=== PATIENT | male | born 1995 | race Hispanic/Latino ===

== ENCOUNTER 2019-02-19 15:57 | Emergency (ER) | payer SELFPAY ==
[2019-02-19] MEDS ORDERED: LIDOCAINE 1% MPF 5 ML VIAL ONE (16:30)
--- NOTE | 2019-02-19 17:05 | EDPHYS ---
Physician Documentation [facility] Name: Froylan Becerril Age: 23 yrs Sex: Male : 1995 Arrival Date: 02/19/2019 Time: 15:58 Bed 16 Private MD: ED Physician eJsse Escoto HPI: 02/19 16:14 This 23 yrs old Male presents to ER via Ambulatory with complaints of pm1 Laceration - eyebrow. 16:14 The patient or guardian reports a laceration, 2 cm(s), clean. The complaints affect the pm1 outer aspect of right eyebrow. Context of injury: The problem was sustained at a sports field or court, resulted from elbowed to right eyebrow while playing soccer. Onset: The symptoms/episode began/occurred just prior to arrival. Associated signs and symptoms: Loss of consciousness: This patient did not experience any loss of consciousness. Pertinent negatives: headache, neck pain, seizure. The patient has not experienced similar symptoms in the past. It is unknown whether or not the patient has recently seen a physician. Historical: - Allergies: 16:01 No Known Allergies; jl7 - Home Meds: 16:01 None [Active]; jl7 - PMHx: 16:01 None; jl7 - PSHx: 16:01 None; jl7 - Immunization history:: Adult Immunizations not up to date. - Social history:: Smoking status: Patient/guardian denies using tobacco. - Ebola Screening: : No symptoms or risks identified at this time. ROS: 16:14 Constitutional: Negative for fever, chills, and weight loss. pm1 16:14 Eyes: Negative for injury, pain, redness, and discharge, ENT: Negative for injury, pain, and discharge, Neck: Negative for injury, pain, and swelling, Cardiovascular: Negative for chest pain, palpitations, and edema, Respiratory: Negative for shortness of breath, cough, wheezing, and pleuritic chest pain, Back: Negative for injury and pain, MS/Extremity: Negative for injury and deformity. 16:14 Neuro: Negative for headache, weakness, numbness, tingling, and seizure. 16:14 Skin: Positive for laceration(s), of the outer aspect of right eyebrow. Exam: 16:14 Constitutional: This is a well developed, well nourished patient who is awake, alert, pm1 and in no acute distress. 16:14 Eyes: Pupils equal round and reactive to light, extra-ocular motions intact. Lids and lashes normal. Conjunctiva and sclera are non-icteric and not injected. Cornea within normal limits 16:14 Neck: Trachea midline, no thyromegaly or masses palpated, and no cervical lymphadenopathy. Supple, full range of motion without nuchal rigidity, or vertebral point tenderness. No Meningismus. Chest/axilla: Normal chest wall appearance and motion. Nontender with no deformity. No lesions are appreciated. Cardiovascular: Regular rate and rhythm with a normal S1 and S2. No gallops, murmurs, or rubs. Normal PMI, no JVD. No pulse deficits. Respiratory: Lungs have equal breath sounds bilaterally, clear to auscultation and percussion. No rales, rhonchi or wheezes noted. No increased work of breathing, no retractions or nasal flaring. Skin: Warm, dry with normal turgor. Normal color with no rashes, no lesions, and no evidence of cellulitis. MS/ Extremity: Pulses equal, no cyanosis. Neurovascular intact. Full, normal range of motion. 16:14 Head/face: Noted is no obvious of injury or deformity except a laceration(s), that is linear, 2 cm(s), of the outer aspect of right eyebrow. 16:14 ENT: External ear(s): are unremarkable, Ear canal(s): are normal, TM's: are normal. 16:14 Neuro: Orientation: is normal, Motor: is normal, moves all fours, Gait: is steady, at a normal pace, without difficulty. Vital Signs: 16:01 BP 135 / 77; Pulse 92; Resp 16 S; Temp 98.2(O); Pulse Ox 97% on R/A; Weight 58.97 kg jl7 (R); Height 5 ft. 3 in. (160.02 cm) (R); Pain 3/10; 16:01 Body Mass Index 23.03 (58.97 kg, 160.02 cm) jl7 [place] Coma Score: 16:14 Eye Response: spontaneous(4). Verbal Response: oriented(5). Motor Response: obeys pm1 commands(6). Total: 15. Laceration: 17:02 Wound Repair of 2cm ( 0.8in ) subcutaneous laceration to outer aspect of right eyebrow. pm1 Linear shaped.. Distal neuro/vascular/tendon intact. Anesthesia: Local anesthetic administered with 1 mls of 1% lidocaine. Wound prep: Extensive cleansing with hibiclenz by me, Wound irrigation with saline by me, Wound explored extensively, Copious irrigation. Skin closed with 4 5-0 Prolene using simple sutures and sterile technique. Dressed with 4x4's. Patient tolerated well. MDM: 16:03 Patient medically screened. pm1 17:02 Data reviewed: vital signs. Counseling: I had a detailed discussion with the patient pm1 and/or guardian regarding: the historical points, exam findings, and any diagnostic results supporting the discharge/admit diagnosis, the need for outpatient follow up, to return to the emergency department if symptoms worsen or persist or if there are any questions or concerns that arise at home, suture removal in 4-5 days. 02/19 16:14 Order name: Prolene, Sutures; Complete Time: 16:31 pm1 02/19 16:14 Order name: Dressing - Wound; Complete Time: 17:07 pm1 02/19 16:14 Order name: Gloves, Sterile; Complete Time: 16:31 pm1 02/19 16:14 Order name: Setup Suture Tray; Complete Time: 16:31 pm1 Administered Medications: 16:40 Drug: Lidocaine (1 %) 5 ml {Note: by Oskar Frost NP.} Volume: 5 ml; Route: Infiltration;aj1 Disposition: 02/20 10:25 Co-signature as Attending Physician, Jesse Escoto MD I agree with the assessment and ricky plan of care. Disposition: 02/19/19 17:04 Discharged to Home. Impression: Laceration without foreign body of unspecified part of head - right eyebrow. - Condition is Stable. - Discharge Instructions: Facial Laceration. - Medication Reconciliation Form, Thank You Letter, Antibiotic Education, Prescription Opioid Use form. - Follow up: Emergency Department; When: As needed; Reason: Worsening of condition. Follow up: Private Physician; When: 4-5 days; Reason: Wound Recheck, Recheck today's complaints, Continuance of care, Staple/Suture removal, Re-evaluation by your physician. - Problem is new. - Symptoms have improved. Signatures: Juany Paulino, RN RN aj1 Jesse Escoto MD MD cha Marinas, Patrick, DRAGAN MOTOR GENERATOR SET OPERATOR pm1 Ashish Cuadra RN RN jl7 Corrections: (The following items were deleted from the chart) 02/19 17:15 17:04 02/19/2019 17:04 Discharged to Home. Impression: Laceration without foreign body aj1 of unspecified part of head - right eyebrow. Condition is Stable. Forms are Medication Reconciliation Form, Thank You Letter, Antibiotic Education, Prescription Opioid Use. Follow up: Emergency Department; When: As needed; Reason: Worsening of condition. Follow up: Private Physician; When: 4-5 days; Reason: Wound Recheck, Recheck today's complaints, Continuance of care, Staple/Suture removal, Re-evaluation by your physician. Problem is new. Symptoms have improved. pm1
--- NOTE | 2019-02-19 17:05 | ER ---
Nurse's Notes [facility] Name: Froylan Becerril Age: 23 yrs Sex: Male : 1995 Arrival Date: 02/19/2019 Time: 15:58 Bed 16 Private MD: Diagnosis: Laceration without foreign body of unspecified part of head-right eyebrow Presentation: 02/19 16:00 Presenting complaint: Patient states: Playing soccer and got elbowed about 20 minutes jl7 ago. Transition of care: patient was not received from another setting of care. Complicating Factors: There are no complicating factors for this patient. Onset of symptoms was February 19, 2019 at 15:40. Risk Assessment: Do you want to hurt yourself or someone else? Patient reports no desire to harm self or others. Initial Sepsis Screen: Does the patient meet any 2 criteria? No. Patient's initial sepsis screen is negative. Does the patient have a suspected source of infection? No. Patient's initial sepsis screen is negative. Care prior to arrival: None. 16:00 Method Of Arrival: Ambulatory jl7 16:00 Acuity: ANA 4 jl7 Triage Assessment: 16:01 General: Appears in no apparent distress. uncomfortable, Behavior is calm, cooperative, jl7 appropriate for age. Pain: Complains of pain in outer aspect of right eyebrow Pain currently is 3 out of 10 on a pain scale. Injury Description: Laceration sustained to right eye is 0.5 to 2.5 cm long, was sustained less than 30 minutes ago. is bleeding no active bleeding noted. Historical: - Allergies: 16:01 No Known Allergies; jl7 - Home Meds: 16:01 None [Active]; jl7 - PMHx: 16:01 None; jl7 - PSHx: 16:01 None; jl7 - Immunization history:: Adult Immunizations not up to date. - Social history:: Smoking status: Patient/guardian denies using tobacco. - Ebola Screening: : No symptoms or risks identified at this time. Screenin:25 Abuse screen: Denies threats or abuse. Denies injuries from another. Nutritional aj1 screening: No deficits noted. Tuberculosis screening: No symptoms or risk factors identified. 17:15 Fall Risk None identified. aj1 Assessment: 16:25 General: Appears in no apparent distress. comfortable, Behavior is calm, cooperative, aj1 appropriate for age. Pain: Complains of pain in outer aspect of right eyebrow Pain does not radiate. Neuro: Level of Consciousness is awake, alert, obeys commands. Cardiovascular: Patient's skin is warm and dry. Respiratory: Airway is patent Respiratory effort is even, unlabored, Respiratory pattern is regular, symmetrical. GI: No signs and/or symptoms were reported involving the gastrointestinal system. : No signs and/or symptoms were reported regarding the genitourinary system. EENT: No signs and/or symptoms were reported regarding the EENT system. Derm: Skin is pink, warm \T\ dry. normal. Musculoskeletal: Circulation, motion, and sensation intact. Injury Description: Laceration sustained to outer aspect of right eyebrow is 0.5 to 2.5 cm long. 16:49 Reassessment: Oskar Frost NP at bedside to perform laceration repair. aj1 17:14 Reassessment: Patient appears in no apparent distress at this time. No changes from aj1 previously documented assessment. Patient and/or family updated on plan of care and expected duration. Pain level reassessed. Patient is alert, oriented x 3, equal unlabored respirations, skin warm/dry/pink. Vital Signs: 16:01 BP 135 / 77; Pulse 92; Resp 16 S; Temp 98.2(O); Pulse Ox 97% on R/A; Weight 58.97 kg jl7 (R); Height 5 ft. 3 in. (160.02 cm) (R); Pain 3/10; 16:01 Body Mass Index 23.03 (58.97 kg, 160.02 cm) jl7 [place] Coma Score: 16:14 Eye Response: spontaneous(4). Verbal Response: oriented(5). Motor Response: obeys pm1 commands(6). Total: 15. ED Course: 15:58 Patient arrived in ED. as 16:01 Triage completed. jl7 16:01 Arm band placed on right wrist. jl7 16:03 Dale Frost NP is PHCP. pm1 16:03 Jesse Escoto MD is Attending Physician. pm1 16:05 Juany Paulino RN is Primary Nurse. aj1 16:25 Patient has correct armband on for positive identification. Bed in low position. Call aj1 light in reach. 16:25 No provider procedures requiring assistance completed. aj1 16:49 Assist provider with laceration repair on outer aspect of right eyebrow using sutures. aj1 Set up tray. Performed by Dale Frost NP. 17:14 Patient did not have IV access during this emergency room visit. aj1 Administered Medications: 16:40 Drug: Lidocaine (1 %) 5 ml {Note: by Oskar Frost NP.} Volume: 5 ml; Route: Infiltration;aj1 Outcome: 17:04 Discharge ordered by MD. pm1 17:15 Discharged to home ambulatory. aj1 17:15 Condition: good 17:15 Discharge instructions given to patient, family, Instructed on discharge instructions, follow up and referral plans. Demonstrated understanding of instructions, follow-up care. 17:15 Patient left the ED. aj1 Signatures: Juany Paulino, RN RN aj1 Sandie Aguilera Patrick, NP ADMISSION SPECIALIST pm1 Ashish Cuadra RN RN jl7
[2019-02-19 17:35] VITALS: BP 135/77; TEMP 98.2; O2SAT 97
== END 2019-02-19 17:15 | disposition home or self-care (01) ==
LOC: ER 15:57
PROC: 0JQ10ZZ Repair Face Subcutaneous Tissue and Fascia, Open Approach (ICD-10-PCS; principal; 2019-02-19)
DX: S01.111A Laceration without foreign body of right eyelid and periocular area, initial encounter (principal); W50.0XXA Accidental hit or strike by another person, initial encounter; Y93.66 Activity, soccer; Y92.322 Soccer field as the place of occurrence of the external cause
CPT/HCPCS: 99283